=== PATIENT | female | born 1965 | race Caucasian/White ===

== ENCOUNTER → 2017-03-11 | Day surgery (SDC) | payer OTHER ==
--- NOTE | 2017-03-12 11:34 | PATH ---
Surgical Pathology Report Patient Name: CLAYTON ASHLEY [facility]. Rec. #: [id number] /Age/Gender: 1965 (Age: 51) / F Account: [id number] Location: [facility] Taken: 03/11/2017 Received: 03/11/2017 Reported: 03/12/2017 Physicians: Maryse Figueroa M.D. Specimen(s) Received A: LEFT BREAST SPECIMEN WITH CALCIFICATION B: LEFT BREAST SPECIMEN WITHOUT CALCIFICATIONS Clinical History Nonpalpable lesion Mammographic findings: Microcalcification, suspicious Final Diagnosis A. LEFT BREAST, WITH CALCIFICATION, STEREOTACTIC NEEDLE CORE BIOPSY: BENIGN BREAST TISSUE WITH ADENOSIS AND SCLEROSING ADENOSIS ARISING IN A BACKGROUND OF FIBROCYSTIC CHANGES INCLUDING STROMAL FIBROSIS AND DUCTAL DILATATION. MICROCALCIFICATIONS ARE IDENTIFIED. B. LEFT BREAST, WITHOUT CALCIFICATION, STEREOTACTIC NEEDLE CORE BIOPSY: BENIGN BREAST TISSUE WITH ADENOSIS, AND FIBROCYSTIC CHANGES INCLUDING USUAL DUCTAL HYPERPLASIA (UDH), STROMAL FIBROSIS AND DUCTAL DILATATION Electronically Signed Don Odell M.D. Gross Description A. Received in formalin labeled "left breast with calcifications," are 3 shipman-yellow, cylindrical portions of fibroadipose tissue ranging from 1.7-3.7 cm in length and averaging 0.3 cm in diameter. The specimens are submitted in toto in one cassette. B. Received in formalin labeled "left breast without calcifications," are 11 shipman-yellow, cylindrical portions of fibroadipose tissue ranging from 0.5-3.0 cm in length and averaging 0.3 cm in diameter. The specimens are submitted in toto in 2 cassettes. Time to formalin fixation: 5 minutes Total formalin fixation time: Approximately 6 hours. 03/11/201703/11/2017
== END | disposition home or self-care (01) ==
LOC: FMAMMOTONE 09:55
PROVIDERS: ATTEND Family Medicine
PROC: 0HBU3ZX Excision of Left Breast, Percutaneous Approach, Diagnostic (ICD-10-PCS; principal; 2017-03-11)
DX: N60.22 Fibroadenosis of left breast (principal); N60.32 Fibrosclerosis of left breast; N64.89 Other specified disorders of breast; R92.1 Mammographic calcification found on diagnostic imaging of breast
CPT/HCPCS: 19081; 87899; 88305-TC; A4648

== ENCOUNTER 2019-01-16 23:36 | Emergency (ER) | payer OTHER ==
[2019-01-17 00:59] VITALS: BP 132/72; PULSE 102; TEMP 98; BMI 25.5
--- NOTE | 2019-01-17 01:39 | PDOC ---
Documentation entered by Bisi Leblanc SCRIBE, acting as scribe for Cindy Hill MD. Cindy Hill MD: This documentation has been prepared by the Benji hanna Brenda, SCRIBE, under my direction and personally reviewed by me in its entirety. I confirm that the documentation accurately reflects all work, treatment, procedures, and medical decision making performed by me. History of Present Illness - General Chief Complaint: Vaginal Bleeding Stated Complaint: VAGINAL BLEEDING Time Seen by Provider: 01/17/19 00:58 History Source: Patient Exam Limitations: No Limitations - History of Present Illness Initial Comments: 01/17/19 01:06 The patient is a 53 year old female, with a significant PMH of who presents to the emergency department with a laceration on her left labia. As per patient, she was trying to shave while in the shower, and accidentally cut herself. She stats that her and was trying to stop the bleeding for 2 hours with no avail, and tried rubbing alcohol, to no relief, prompting their arrival to the ED. She also endorses excessive bleeding from laceration, when moving/walking. The patient denies chest pain, shortness of breath, headache and dizziness. Denies fever, chills, nausea, vomiting, diarrhea and constipation. Denies any urinary symptoms. Allergies: NKA Past surgical history: None reported Social history: No tobacco use, alcohol use or illicit drug use. PCP: Maurice Gleason Past History - Past Medical History Allergies/Adverse Reactions: Allergies Allergy/AdvReac Type Severity Reaction Status Date / Time No Known Allergies Allergy Verified 01/17/19 00:59 Home Medications: Ambulatory Orders Oxycodone HCl/Acetaminophen [Percocet 5-325 mg Tablet] 1 tab PO Q4H #20 tablet MDD 6 11/27/15 Valacyclovir HCl [Valtrex -] 1,000 mg PO TID #21 tablet 11/27/15 - Psycho Social/Smoking Cessation Hx Smoking History: Never smoked Have you smoked in the past 12 months: No Hx Alcohol Use: No Drug/Substance Use Hx: No Review of Systems - Review of Systems Able to Perform ROS?: Yes Comments:: 01/17/19 01:07 CONSTITUTIONAL: Absent: fever, no chills, no fatigue EYES: Absent: visual changes ENT: Absent: ear pain, no sore throat CARDIOVASCULAR: Absent: chest pain, no palpitations RESPIRATORY: Absent: cough, no SOB GI: Absent: abdominal pain, no nausea, no vomiting, no constipation, no diarrhea GENITOURINARY: Absent: dysuria, no frequency, no hematuria MUSKULOSKELETAL: Absent: back pain, no arthralgia, no myalgia SKIN: (+) Bleeding Laceration (scrape) on left labia. Absent: rash NEURO: Absent: headache *Physical Exam - Vital Signs Last Vital Signs Temp Pulse Resp BP Pulse Ox 98.0 F 102 H 19 132/72 98 01/16/19 23:40 01/16/19 23:40 01/16/19 23:40 01/16/19 23:40 01/16/19 23:40 - Physical Exam Comments: 01/17/19 01:07 GENERAL: Well-appearing, well-nourished. No apparent distress. HEENT: Normocephalic, atraumatic. PERRL, EOM intact. CARDIOVASCULAR: Normal S1, S2. Regular rate and rhythm. PULMONARY: Clear to auscultation bilaterally. ABDOMEN: Soft, non-distended, non-tender. EXTREMITIES: Normal ROM in all four extremities. No gross deformities. SKIN: (+) Superficial abrasion on left labia. Bleeding stopped. Warm, dry. No rash NEUROLOGICAL: No focal neurological deficits. Discharge - Discharge Information Problems reviewed: Yes Clinical Impression/Diagnosis: Superficial laceration Condition: Stable Disposition: HOME - Follow up/Referral Referrals: Maurice Gleason MD [Primary Care Provider] - - Patient Discharge Instructions Patient Printed Discharge Instructions: DI for Minor Laceration Additional Instructions: please hold pressure to the area if the bleeding resumes please place bacitracin wound for the next 2 days - Post Discharge Activity
== END 2019-01-17 01:54 | disposition home or self-care (01) ==
LOC: JER 23:36
DX: S31.41XA Laceration without foreign body of vagina and vulva, initial encounter (principal); W27.8XXA Contact with other nonpowered hand tool, initial encounter; Y93.E8 Activity, other personal hygiene; Y99.8 Other external cause status; Y92.012 Bathroom of single-family (private) house as the place of occurrence of the external cause
CPT/HCPCS: 99282-25